=== PATIENT | female | born 1970 | race Two or more races ===

== ENCOUNTER 2018-07-05 16:35 | Inpatient (IN) | payer BC ==
[~2018-07-05] VITALS: Ht 154.9 cm; Wt 63.0 kg
[2018-07-05 16:35] VITALS: BP_SYST 147
--- NOTE | 2018-07-05 16:35 | NUR ---
ASSISTED OUT OF CAR TO WHEELCHAIR, PLACED IN BED #1 AND TRIAGED. REPORT GIVEN TO TERENCE
--- NOTE | 2018-07-05 16:40 | NUR ---
Patient to ER via triage for evaluation s/p falling down hill x 2 today, prior to arrival. Patient brought back to bed 1 via wheelchair and assisted into bed. Patient able to move all extremities, vital signs stable, respirations even and unlabored, skin warm and dry to touch. Awaiting evaluation by ER MD, will continue to observe and assess.
[2018-07-05] MEDS ORDERED: KETOROLAC TROMETHAMINE 30 MG VIAL IVP ONE (16:45)
[2018-07-05] MEDS ORDERED: NACL 0.9% 1,000 ML IV ONE (16:45)
--- NOTE | 2018-07-05 16:45 | NUR ---
PT SPOUSE STATES PT FELL AND ROLLED DOWN A HILL. INJURY TO RIGHT SIDE OF HEAD, FACE, HAND, KNEE, FOOT.
--- NOTE | 2018-07-05 16:50 | NUR ---
ER at bedside examining patient.
--- NOTE | 2018-07-05 16:53 | NUR ---
# 14 FR In and Out catheter with use of sterile technique. Immediate return of 100 ml clear yellow urine noted. Urine sample collected and sent to lab. Pt tolerated procedure well. Patient unable to toilet self at this time.
--- NOTE | 2018-07-05 16:55 | NUR ---
Warm blankets provided. EMT at bedside for wound care.
[2018-07-05 16:58] LABS: BILIRUBIN,URINE NEGATIVE (NEGATIVE); BLOOD, URINE NEGATIVE (NEGATIVE); CLARITY/URINE CLEAR (CLEAR); COLOR,URINE YELLOW (YELLOW); GLUCOSE,URINE NEGATIVE (NEGATIVE); KETONES,URINE NEGATIVE (NEGATIVE); LEUKOCYTE ESTERASE ,URINE NEGATIVE (NEGATIVE); NITRITE, URINE NEGATIVE (NEGATIVE); PH,URINE 5.5 (5.0-8.0); PROTEIN URINE NEGATIVE (NEGATIVE); UROBILINOGEN,URINE 0.2 (0.2-1.0)
[2018-07-05 17:02] LABS: EOSINOPHILS # (AUTO) 0.1 K/uL (0.0-0.4); EOSINOPHILS % (AUTO) 0.9 % (0.0-4.0); MONOCYTES # (AUTO) 0.4 K/uL (0.0-1.0); MONOCYTES % (AUTO) 5.2 % (1.7-9.3)
[2018-07-05 17:07] LABS: BASOPHILS # (AUTO) 0.2 K/uL (0.0-0.2); BASOPHILS % (AUTO) 2.9 % (0.0-2.0); HEMATOCRIT 45.6 % (36-48); HEMOGLOBIN 14.7 g/dL (12.0-16.0); LYMPHOCYTES # (AUTO) 2.5 K/uL (1.0-5.5); LYMPHOCYTES % (AUTO) 31.8 % (20.5-51.5); MEAN CORPUSCULAR HEMOGLOBIN 29 pg (27-31); MEAN CORPUSCULAR HGB CONC 32 % (32-36); MEAN CORPUSCULAR VOLUME 89 fL (79.0-98.0); NEUTROPHILS # (AUTO) 4.6 K/uL (1.8-7.7); NEUTROPHILS % (AUTO) 59.2 % (40.0-70.0); PLATELET COUNT (AUTO) 255 K/uL (130-430); RED BLOOD CELL COUNT(AUTO) 5.14 MIL/uL (4.2-6.2); RED CELL DISTRIBUTION WIDTH 11.7 % (9.0-15.0); WHITE BLOOD COUNT (AUTO) 7.8 K/uL (4.8-10.8)
[2018-07-05 17:09] LABS: POTASSIUM 3.5 mmol/L (3.5-5.1)
[2018-07-05 17:10] LABS: CALCIUM 9.8 mg/dL (8.4-11.0); CREATININE 0.77 mg/dL (0.55-1.30)
--- NOTE | 2018-07-05 17:14 | NUR ---
Off unit for CT via [facility]
[2018-07-05 17:15] LABS: TOTAL BILIRUBIN 0.5 mg/dL (0.0-1.0)
--- NOTE | 2018-07-05 17:20 | NUR ---
Patient back from CT scan in stable condition.
--- NOTE | 2018-07-05 18:00 | NUR ---
Patient resting quietly in no acute distress. Awaiting dispo
[2018-07-05] MEDS ORDERED: DIPH-TET-PERTUS Vaccine 0.5 ML VIAL (ADACEL) I.M. ONE (18:15)
--- NOTE | 2018-07-05 18:25 | NUR ---
Patient will be admitted to care of Dr Hale. Admitted to tele unit. Will go to room 120-B. Belongings list completed. Summary report printed. Report will be given at bedside. Transfer to tele via ACLS protocol. Licensed nurse present. IV present no signs or symptoms of infiltration.
[2018-07-05] MEDS ORDERED: ONDANSETRON HCL 4 MG/2 ML VIAL IVP PRN ×2 (18:30→22:15)
--- NOTE | 2018-07-05 18:45 | NUR ---
ADMISSION NOTE Received patient from ER via reena, received report from TERENCE MCCANN. Patient admitted with diagnosis of CONCUSSION. Patient oriented to hospital routine, call light, toileting and safety-patient verbalized understanding.
--- NOTE | 2018-07-05 18:55 | NUR ---
Medication reconciliation completed with information provided by family. Any prior medication reconciliation on file was reviewed and corrected. Per family, they will bring in a more complete medication list.
[2018-07-05] MEDS ORDERED: AMLO5TAB4 PO (18:59)
[2018-07-05] MEDS ORDERED: CORT25TA PO (18:59)
[2018-07-05] MEDS ORDERED: MELO15TA13 PO (18:59)
[2018-07-05] MEDS ORDERED: [UNRECOGNIZED DRUG - OTHER] PO (18:59)
[2018-07-05 19:00] VITALS: BP_SYST 158
--- NOTE | 2018-07-05 19:30 | NUR ---
OPENING NOTE Received report from Kellen. Patient resting in bed awake, alert, oriented x4. Breathing unlabored and even on room air. No signs of distress, no needs at this time. Fall and safety precautions in place. Bed in lowest position, brake on, alarm on, call light within reach. Family at the bedside. Will continue to monitor.
[2018-07-05 20:00] VITALS: BP_SYST 149
[2018-07-05] MEDS ORDERED: NALT50TA PO (20:43)
[2018-07-05] MEDS ORDERED: PREG75CA PO (20:43)
[2018-07-05] MEDS ORDERED: MELA3TAB PO (20:43)
--- NOTE | 2018-07-05 21:48 | NUR ---
Pt c/o headache. Will page Dr. Hale for orders.
[2018-07-05] MEDS ORDERED: cloNIDine HCL 0.1 MG TABLET PO PRN (22:15)
--- NOTE | 2018-07-05 22:18 | NUR ---
Called remote pharmacy to approve patient's tylenol, they stated "I WILL WORK ON IT".
--- NOTE | 2018-07-05 22:25 | NUR ---
Dr. Hale at the bedside. Orders rec'd.
[2018-07-05] MEDS: ACETAMINOPHEN 325 MG TABLET PO PRN (22:41)
[2018-07-05] MEDS: TEMAZEPAM 15 MG CAPSULE PO PRN (22:42)
[2018-07-05] MEDS ORDERED: HYDROcodone/ACETAMIN 5-325 MG TAB (NORCO/ VICODIN) PO PRN ×2 (22:45)
--- NOTE | 2018-07-05 22:46 | NUR ---
Patient c/o headache. Administered PRN tylenol PO as ordered. Patient requested sleeping pill. Administered PRN restoril PO as ordered. Educated patient on safety and side effects. Encourage call for assist.
[2018-07-05] MEDS ORDERED: DEXTROSE 50% JECT 50 ML DISP.SYRIN IVP PRN (23:00)
--- NOTE | 2018-07-06 00:15 | NUR ---
Patient resting in bed with eyes closed. Breathing unlabored and even on room air. No signs of distress, no needs at this time. Fall and safety precautions in place. Bed in lowest position, brake on, alarm on, call light within reach. at the bedside. Will continue to monitor.
--- NOTE | 2018-07-06 02:41 | NUR ---
Patient c/o pain. Administered PRN norco PO as ordered. Educated patient on side effects and safety. Encouraged call for assist.
[2018-07-06 03:42] VITALS: BP_SYST 126
--- NOTE | 2018-07-06 05:42 | NUR ---
CONSULTATION PAGED/CALLED Reason for Consultation: KNEE SWELLING Person Who was Notified: ANASTASIIA Consulting Physician: DR. MO; ONCALL- DR. CUNNINGHAM Ordering Physician: DR. DOUGLAS
[2018-07-06 06:02] LABS: BASOPHILS % (AUTO) 0.3 % (0.0-2.0); EOSINOPHILS # (AUTO) 0.1 K/uL (0.0-0.4); EOSINOPHILS % (AUTO) 0.8 % (0.0-4.0); HEMATOCRIT 40.8 % (36-48); HEMOGLOBIN 13.3 g/dL (12.0-16.0); LYMPHOCYTES # (AUTO) 1.5 K/uL (1.0-5.5); MEAN CORPUSCULAR HEMOGLOBIN 29 pg (27-31); MEAN CORPUSCULAR HGB CONC 33 % (32-36); MEAN CORPUSCULAR VOLUME 89 fL (79.0-98.0); MONOCYTES # (AUTO) 0.4 K/uL (0.0-1.0); MONOCYTES % (AUTO) 6.8 % (1.7-9.3); NEUTROPHILS # (AUTO) 4.4 K/uL (1.8-7.7); NEUTROPHILS % (AUTO) 68.1 % (40.0-70.0); PLATELET COUNT (AUTO) 231 K/uL (130-430); RED CELL DISTRIBUTION WIDTH 11.9 % (9.0-15.0); WHITE BLOOD COUNT (AUTO) 6.4 K/uL (4.8-10.8)
[2018-07-06] MEDS: INSULIN REGULAR, HUMAN 100 UNITS/ML, 10 ML VIAL (novoLIN R) SUBCUT PRN (06:20)
--- NOTE | 2018-07-06 06:20 | NUR ---
Blood sugar 123. No insulin coverage needed
[2018-07-06 06:26] LABS: CHLORIDE 103 mmol/L (98-107); POTASSIUM 3.5 mmol/L (3.5-5.1); SODIUM SERUM 140 mmol/L (136-145); TOTAL BILIRUBIN 0.6 mg/dL (0.0-1.0)
[2018-07-06 07:23] LABS: ALANINE AMINOTRANSFERASE 30 U/L (12-78); ALBUMIN 3.5 g/dL (3.4-4.8); ANION GAP 9 (5-15); ASPARTATE AMINOTRANSFERASE 21 U/L (10-37); CREATININE 0.84 mg/dL (0.55-1.30); FREE T4 (FREE THYROXINE) 0.8 ng/dl (0.8-1.5); GLUCOSE 104 mg/dL (70-99)
[2018-07-06 07:26] LABS: GFR AFRICAN AMERICAN 93 mL/min (>90)
--- NOTE | 2018-07-06 07:27 | NUR ---
CLOSING NOTE Gave report to Ana. Patient resting in bed awake, alert, oriented x4. Breathing unlabored and even on room air. No signs of distress, no needs at this time. Fall and safety precautions in place. Bed in lowest position, brake on, alarm on, call light within reach. Family at the bedside. Endorsed care to day shift nurse.
[2018-07-06 07:33] LABS: CALCIUM 9.4 mg/dL (8.4-11.0); UREA NITROGEN, BLOOD 16 mg/dL (8-21)
[2018-07-06] MEDS: ACETAMINOPHEN 325 MG TABLET PO PRN (07:54)
[2018-07-06 08:00] VITALS: BP_SYST 109
--- NOTE | 2018-07-06 08:00 | NUR ---
Opening Note Report received from [facility] shift nurse. Patient is currently resting in bed. Soft collar is in place. Patient has abrasions over the right side of her forehead, nose, right knee, and left foot. IV is on the RFA 22g , saline locked. Call light is within reach and bed is in low position. Will continue to monitor.
[2018-07-06] MEDS: amLODIPine BESYLATE 5 MG TABLET PO SCH (09:48)
--- NOTE | 2018-07-06 11:32 | NUR ---
Blood sugar Rechecked blood sugar per patient's request. Current accu check is 135. No insulin coverage needed.
[2018-07-06 11:38] VITALS: BP_SYST 101
[2018-07-06] MEDS ORDERED: ACETAMINOPHEN/CODEINE 300 MG-30 MG TABLET PO PRN (12:00)
[2018-07-06] MEDS ORDERED: AMOXICILLIN/CLAVULANATE POTASSIUM 875 MG TABLET PO ONE (12:15)
[2018-07-06] MEDS ORDERED: LACTOBACILLUS RHAMNOSUS GG 1 CAP CAPSULE PO ONE (12:15)
--- NOTE | 2018-07-06 12:30 | NUR ---
Rounds Patient is resting in bed. Call light is within
--- NOTE | 2018-07-06 12:46 | NUR ---
Neuro consult called: for Dr. Cheung, regarding concussion, ordered by Dr. Hale, spoke with Tatianna.
[2018-07-06] MEDS: MELOXICAM 7.5 MG TABLET PO PRN (13:31)
--- NOTE | 2018-07-06 14:38 | NUR ---
MD ROunds Dr. Hale rounded on the patient. Orders were received.
[2018-07-06 16:11] VITALS: BP_SYST 118
--- NOTE | 2018-07-06 16:37 | NUR ---
RN Notes Right knee immobilizer placed. Patient tolerated well
--- NOTE | 2018-07-06 18:51 | NUR ---
Closing Note Patient is resting in bed. Consult with Dr. Giron and Jonatan are pending. IV is on the RFA 20 saline locked. right knee immobilizer is in place. Call light is within reach and bed is in low position. Will endorse care to the oncoming nurse.
--- NOTE | 2018-07-06 19:22 | NUR ---
OPENING NOTES Received pt and endorsement from morning shift nurse. Pt is awake, alert and lying in bed. Family at bedside. No complains of pain at this time. No sign of acute distress noted. Pt is on saline lock on right forearm G20. Encouraged to use call light when needed. Call light with pt, bed alarm and at its lowest level. Will continue to monitor.
[2018-07-06 20:00] VITALS: BP_SYST 123
[2018-07-06] MEDS: AMOXICILLIN/CLAVULANATE POTASSIUM 875 MG TABLET PO SCH (20:05)
[2018-07-06] MEDS: PREGABALIN 75 MG CAPSULE (LYRICA) PO SCH (20:05)
[2018-07-06] MEDS: LACTOBACILLUS RHAMNOSUS GG 1 CAP CAPSULE PO SCH (20:05)
[2018-07-06] MEDS: TEMAZEPAM 15 MG CAPSULE PO PRN (20:06)
[2018-07-06] MEDS: ACETAMINOPHEN/CODEINE 300 MG-30 MG TABLET PO PRN (20:07)
--- NOTE | 2018-07-06 20:08 | NUR ---
Dr RAMACHANDRAN at bedside now. Addendum: 07/06/18 at 2015 by Maryann Bravo RN Dr. HUBBARD at bedside now. Addendum: 07/06/18 at 2338 by Maryann Bravo RN Pt complained of discomfort about knee immobilizer. Dr. Hubbard removed it and placed it at bedside.
--- NOTE | 2018-07-06 23:24 | NUR ---
RESTING Pt is resting in bed with both eyes closed. With visible chest rise and fall noted. Spouse Ed at bedside. No signs of acute distress or shortness of breath noted. Call light with pt, bed alarm on and at its lowest level. Will continue to monitor.
[2018-07-07 02:00] VITALS: BP_SYST 147
--- NOTE | 2018-07-07 02:00 | NUR ---
RESTING Pt is resting in bed with both eyes closed. With visible chest rise and fall noted. Spouse Ed at bedside. No complains at this time and no signs of acute distress. Safety precautions are in place and call light with pt.
--- NOTE | 2018-07-07 06:40 | NUR ---
CLOSING NOTES Pt is resting in bed with both eyes closed. With visible chest rise and fall noted. Spouse Ed at bedside. No signs of any acute distress noted. All needs attended throughout the shift. Will endorse to day shift nurse.
--- NOTE | 2018-07-07 07:54 | NUR ---
Nutrition Update Arden Scale 18 noted. Pt admitted for concussion Diet: regular diet BMI: 26.3 kg/m2 RD to follow per nutrition care standards.
[2018-07-07 08:00] VITALS: BP_SYST 124
--- NOTE | 2018-07-07 08:00 | NUR ---
Opening Note Report received from [facility] shift nurse. Patient is currently sleeping in bed. IV is on the RFA 20 saline locked. Right knee immobilizer is off per patient's request. No signs of acute distress noted at the moment. Call light is within reach and bed is in low position. Will continue to monitor.
[2018-07-07] MEDS: AMOXICILLIN/CLAVULANATE POTASSIUM 875 MG TABLET PO SCH ×2 (08:45→20:56)
[2018-07-07] MEDS: LACTOBACILLUS RHAMNOSUS GG 1 CAP CAPSULE PO SCH ×2 (08:45→20:55)
[2018-07-07] MEDS: amLODIPine BESYLATE 5 MG TABLET PO SCH (08:46)
[2018-07-07] MEDS: MELOXICAM 7.5 MG TABLET PO PRN (08:46)
--- NOTE | 2018-07-07 09:00 | NUR ---
Pain med Medicated the patient for pain following the indicted pain scale. Will reassess.
--- NOTE | 2018-07-07 10:20 | NUR ---
Rounds patient is resting in bed. Family is at the bedside.
--- NOTE | 2018-07-07 12:35 | NUR ---
Rounds Patient is resting in bed. No signs of acute distress noted at the moment.
[2018-07-07 12:59] VITALS: BP_SYST 132
--- NOTE | 2018-07-07 14:39 | NUR ---
Rounds Patient is resting in bed. Call light is within reach.
[2018-07-07] MEDS: ACETAMINOPHEN/CODEINE 300 MG-30 MG TABLET PO PRN ×2 (16:10→20:56)
--- NOTE | 2018-07-07 16:29 | NUR ---
Md Rounds Dr. Aguayo is covering for Dr. Cheung. assessed the patient at the bedside and ordered an MRI of the brain for tomorrow.
[2018-07-07 16:37] VITALS: BP_SYST 123
--- NOTE | 2018-07-07 16:55 | NUR ---
Pain med Medicated the patient for pain using the indicated pain scale. Will reassess.
--- NOTE | 2018-07-07 18:42 | NUR ---
Closing Note Patient has been stable throughout the shift. MRI of the brain and right knee are pending for tomorrow. IV is on the RFA 20g sl. Call light is within reach and bed is in low position. Will endorse care to the oncoming nurse.
--- NOTE | 2018-07-07 19:05 | NUR ---
OPENING NOTES Late entry due to patient care. Bedside report received from day shift nurse. Patient received AOx4, lying in bed, watching TV, denies any pain, no s/s of acute distress noted. Breathing even and unlabored. HOB raised. No active bleeding noted. No signs of hypoglycemia, skin warm and dry to touch. Call light with patient, instructed to call for any assistance, patient verbalized understanding. Bed alarm is off per patient's refusal. Patient's , Ed, is present at bedside. Bed is locked and at lowest position. Will continue to monitor.
[2018-07-07 20:00] VITALS: BP_SYST 131
[2018-07-07] MEDS: PREGABALIN 75 MG CAPSULE (LYRICA) PO SCH (20:55)
[2018-07-07] MEDS: INSULIN REGULAR, HUMAN 100 UNITS/ML, 10 ML VIAL (novoLIN R) SUBCUT PRN (20:55)
--- NOTE | 2018-07-07 20:57 | NUR ---
REFUSED INSULIN Patient's blood sugar at 187 but refused insulin at this time. Patient stated that she just had a pizza a few minutes ago.
--- NOTE | 2018-07-07 22:00 | NUR ---
SLEEPING PILL Patient requested for sleeping at this time. Restoril to be administered per PRN orders.
[2018-07-07] MEDS: TEMAZEPAM 15 MG CAPSULE PO PRN (22:09)
--- NOTE | 2018-07-08 | NUR ---
ROUNDS Patient in bed sleeping at this time. Patient's present at bedside. No s/s of acute distress noted. Breathing even and unlabored. Call light with patient. Will continue to monitor.
[2018-07-08 01:40] VITALS: BP_SYST 103
--- NOTE | 2018-07-08 02:00 | NUR ---
ROUNDS Patient sleeping at this time. Patient's still present at bedside. No signs of discomfort noted. Chest rise and fall even bilaterally. Call light with patient. Will continue to monitor.
--- NOTE | 2018-07-08 04:00 | NUR ---
ROUNDS Patient sleeping comfortably at this time. No s/s of acute distress noted. Breathing even and unlabored. Call light with patient. Will continue to monitor.
--- NOTE | 2018-07-08 06:00 | NUR ---
ROUNDS Patient in bed at this time, resting. No signs of discomfort noted. Chest rise and fall even bilaterally. Call light with patient. Bed alarm on. Will continue to monitor.
[2018-07-08] MEDS: INSULIN REGULAR, HUMAN 100 UNITS/ML, 10 ML VIAL (novoLIN R) SUBCUT PRN (06:17)
[2018-07-08] MEDS: ACETAMINOPHEN/CODEINE 300 MG-30 MG TABLET PO PRN ×2 (06:18→16:23)
--- NOTE | 2018-07-08 06:43 | NUR ---
CLOSING NOTES Patient in bed awake, alert, going over her phone, no s/s of acute distress noted. Breathing is even and unlabored. Patient's present at bedside, sleeping. IV site is patent, no signs of infiltration or infection noted. Skin warm and dry to touch, no signs of hypoglycemia noted. All of patient's needs met throughout shift. Fall and safety precautions maintained throughout shift. Will continue to monitor until patient care is endorsed to oncoming day shift nurse.
[2018-07-08 07:30] VITALS: BP_SYST 98
--- NOTE | 2018-07-08 08:00 | NUR ---
AM ASSESSMENT RECEIVED PT IN BED .A/OX4,DENIES ANY PAIN AT THIS TIME. C/O OF MILD DIZZINESS. VITALS STABLE. RES EVEN AND UNLABORED. NOT IN ACUTE DISTRESS. POC DISCUSSED WITH PT AND . VERBALIZED UNDERSTANDING. FALL AND SAFETY PRECAUTIONS MAINTAINED. NEEDS ATTENDED. INSTRUCTED PT RUTHIE FOR ASSISTANCE . PT VERBALIZED UNDERSTANDING. WILL CONTINUE TO MONITOR
[2018-07-08] MEDS: amLODIPine BESYLATE 5 MG TABLET PO SCH (09:00)
[2018-07-08] MEDS ORDERED: SILVER 44.4 ML GEL.ER.ML. TP SCH (09:00)
[2018-07-08] MEDS: AMOXICILLIN/CLAVULANATE POTASSIUM 875 MG TABLET PO SCH (09:24)
[2018-07-08] MEDS: LACTOBACILLUS RHAMNOSUS GG 1 CAP CAPSULE PO SCH (09:25)
--- NOTE | 2018-07-08 09:30 | NUR ---
MEDS DUE MEDS GIVEN ORDERED. PT STABLE
--- NOTE | 2018-07-08 11:00 | NUR ---
WOUND EVALUATION: Late note for 1100 secondary to patient care. Wound Consult received from Dr. Hale. Thank you, Dr. Hale, for the consult. Patient received in a [place] Bed with an IsoFlex DARY mattress, awake, alert, oriented. Patient is able to turn in bed independently. Arden Score is an 18. Past Medical History: Patient reported falling down a hill and hitting her head, and following one additional time while getting into her car. No other medical history available. Recent Labs: WBC 6.4, RBC 4.60, hemoglobin 13.3, hematocrit 40.8, GFR 77, glucose 104, POC glucose 179. Intrinsic factors that delay wound healing: Hyperglycemia. Extrinsic factors that delay wound healing: Decreased mobility. Microbiology: No microbiology reports. Wound Assessment: 1. Right lateral forehead: Wound from a fall, present on admission. Wound bed has 100% black scab. No odor, no drainage. Periwound intact. Wound measures 2.8 cm x 2.4 cm. Recommend: Cleanse wound with normal saline. Apply sure prep to periwound. Apply SilvaSorb gel, then hydrogel to wound bed. Cover with foam dressing, then transparent dressing. Perform wound care daily, and as needed for dressing soiling or dislodgment. 2. Right lateral periorbital area: Abrasion from a fall, present on admission. Wound bed has 100% dry red tissue. No odor, no drainage. Periwound intact. Recommend: No dressing needed. Continue to monitor site every shift. 3. Anterior bridge of nose: Wound from a fall, present on admission. Wound bed has 100% black scab. No odor, no drainage. Periwound intact. Wound measures 2.2 cm x 0.8 cm. Recommend: Cleanse wound with normal saline. Pat dry. Apply sure prep to periwound. Apply SilvaSorb gel, then hydrogel to wound bed. Cover with foam dressing, then transparent dressing. Perform wound care daily, and as needed for dressing soiling or dislodgment. 4. Right medial knee: Wound from a fall, present on admission. Wound bed has 80% yellow tissue, 10% red tissue, 10% dark discolored tissue. No odor, scant sanguineous drainage. Periwound and surrounding tissue has ecchymosis. Wound measures 6.0 cm x 5.0 cm. Recommend: Cleanse wound with normal saline. Pat dry. Apply sure prep to periwound. Apply SilvaSorb gel, then hydrogel to wound bed. Cover with oil emulsion dressing. Cover with foam dressing. Perform wound care daily, and as needed for dressing soiling or dislodgment. Also recommend: Encourage patient to self-reposition every 2 hours with pillow support, and off-load pressure areas with pillows for pressure re-distribution. Perform skin care and monitor skin integrity Q shift. Addendum: 07/08/18 at 1845 by Austin Alonzo RN Addendum: 5. Right medial first metatarsal head: Open abrasion, with 80% pink tissue, 20% yellow tissue, present on admission. Measures 1.0 cm x 2.0 cm. Assessment provided by SIOBHAN Keane. Recommend: Cleanse wound with normal saline. Apply sure prep to periwound. Apply SilvaSorb gel, then hydrogel to wound bed. Cover with foam dressing. Perform wound care daily, and as needed for dressing soiling or dislodgment. For home, recommend: Cleanse wounds with normal saline. Apply sure prep to periwounds. Apply SilvaSorb gel to wound beds. Cover with foam dressings. Perform wound care daily, and as needed for dressing soiling or dislodgment. Patient may use over the counter triple antibiotic ointment if she prefers.
--- NOTE | 2018-07-08 11:30 | NUR ---
wound care wound care done with wound care nurse . patient and pt 's educated on wound care .verbalized understanding
[2018-07-08 12:00] VITALS: BP_SYST 121
--- NOTE | 2018-07-08 12:00 | NUR ---
BLOOD SUGAR BLOOD SUGAR 102MG/DL. PT EATING LUNCH. DIZZINESS BETTER PER PT. VITALS STABLE. NOT IN ACUTE DISTRESS. WILL CONITNUE TO MONITOR
--- NOTE | 2018-07-08 15:00 | NUR ---
rounds pt came from mri. not in acute distress. resting comfortably
--- NOTE | 2018-07-08 16:23 | NUR ---
pain pt c/o of headache01/20 .medicated with pain med as ordered.will continue to monitor. family at bed side
[2018-07-08 16:24] VITALS: BP_SYST 119
--- NOTE | 2018-07-08 18:30 | NUR ---
md visit dr angulo here. new order received for discharge
[2018-07-08 19:12] VITALS: BP_SYST 103
--- NOTE | 2018-07-08 19:50 | NUR ---
D/C Patient Patient given medication reconciliation form and D/C instructions. Exit Care provided. Patient verbalized understanding. MD discussed with patient the results and treatment provided. Ambulatory with steady gait for discharge to home. Patient in stable condition, ID band removed. no iv noted . no active bleeding. wound care and discharge instructions given verbalized understanding. Patient educated on pain management. All belongings sent with patient. Addendum: 07/08/18 at 2007 by Diya Menjivar RN pt received all prescriptions yesterday given by dr angulo
== END 2018-07-08 19:50 | disposition home or self-care (01) | DRG 914 ==
LOC: SED 16:35 → STU 18:21 → SMU 07-07 15:43
PROVIDERS: ADMIT Internal Medicine; ATTEND Internal Medicine
PROC: 2W3QXYZ Immobilization of Right Lower Leg using Other Device (ICD-10-PCS; principal; 2018-07-05)
DX: S09.90XA Unspecified injury of head, initial encounter (principal); I10 Essential (primary) hypertension; M79.7 Fibromyalgia; M06.9 Rheumatoid arthritis, unspecified; E11.9 Type 2 diabetes mellitus without complications; T14.8XXA Other injury of unspecified body region, initial encounter; G89.4 Chronic pain syndrome; S00.83XA Contusion of other part of head, initial encounter; M25.561 Pain in right knee; W17.81XA Fall down embankment (hill), initial encounter; Z83.3 Family history of diabetes mellitus; Z82.49 Family history of ischemic heart disease and other diseases of the circulatory system; Y93.89 Activity, other specified; Y92.89 Other specified places as the place of occurrence of the external cause; Y99.8 Other external cause status
CPT/HCPCS: 36415; 70450-TC; 70551; 72125-TC; 73564; 73721; 80053; 81003; 82962; 83605; 84439; 84443-TC; 84484; 84550-TC; 85025; 90656; 90715; 93005; 93880; 96361; 96374; 99285; A6261; J1815; J1885; J2405; J7030

== ENCOUNTER 2018-08-20 11:43 | Outpatient (CLI) | payer BC ==
[~2018-08-20 11:43] MED LIST: AMLO5TAB4 PO; CORT25TA PO; MELA3TAB PO; MELO15TA13 PO; NALT50TA PO; PREG75CA PO; [UNRECOGNIZED DRUG - OTHER] PO
== END 2018-08-20 18:29 | disposition home or self-care (01) ==
LOC: SMI 11:43
PROVIDERS: ATTEND Orthopaedic Surgery
DX: M25.511 Pain in right shoulder (principal)
CPT/HCPCS: 73221

== ENCOUNTER 2018-09-09 01:51 | Emergency (ER) | payer BC ==
[~2018-09-09] VITALS: Ht 154.9 cm; Wt 71.2 kg
[2018-09-09 01:55] VITALS: BP_SYST 115
[2018-09-09] MEDS ORDERED: ASPIRIN 81 MG TAB.CHEW PO ONE (02:30)
[2018-09-09] MEDS ORDERED: LevALBUTEROL HCL 1.25 MG/0.5 ML *CONC.* VIAL.NEB (XOPENEX CONC.) INH ONE (02:30)
[2018-09-09 02:44] LABS: BASOPHILS # (AUTO) 0.2 K/uL (0.0-0.2); BASOPHILS % (AUTO) 2.8 % (0.0-2.0); EOSINOPHILS # (AUTO) 0.1 K/uL (0.0-0.4); EOSINOPHILS % (AUTO) 1.7 % (0.0-4.0); HEMATOCRIT 39.3 % (36-48); LYMPHOCYTES # (AUTO) 2.2 K/uL (1.0-5.5); MEAN CORPUSCULAR HEMOGLOBIN 28 pg (27-31); MEAN CORPUSCULAR HGB CONC 33 % (32-36); MEAN CORPUSCULAR VOLUME 86 fL (79.0-98.0); MONOCYTES # (AUTO) 0.3 K/uL (0.0-1.0); NEUTROPHILS # (AUTO) 3.5 K/uL (1.8-7.7); NEUTROPHILS % (AUTO) 55.5 % (40.0-70.0); PLATELET COUNT (AUTO) 256 K/uL (130-430); RED BLOOD CELL COUNT(AUTO) 4.58 MIL/uL (4.2-6.2); RED CELL DISTRIBUTION WIDTH 12.5 % (9.0-15.0); WHITE BLOOD COUNT (AUTO) 6.3 K/uL (4.8-10.8)
[2018-09-09 02:49] LABS: BILIRUBIN,URINE NEGATIVE (NEGATIVE); BLOOD, URINE NEGATIVE (NEGATIVE); CLARITY/URINE CLEAR (CLEAR); COLOR,URINE YELLOW (YELLOW); GLUCOSE,URINE NEGATIVE (NEGATIVE); KETONES,URINE NEGATIVE (NEGATIVE); LEUKOCYTE ESTERASE ,URINE NEGATIVE (NEGATIVE); NITRITE, URINE NEGATIVE (NEGATIVE); PH,URINE 7.5 (5.0-8.0); PROTEIN URINE NEGATIVE (NEGATIVE); UROBILINOGEN,URINE 0.2 (0.2-1.0)
[2018-09-09 02:58] LABS: CALCIUM 8.8 mg/dL (8.4-11.0); CREATININE 0.68 mg/dL (0.55-1.30); POTASSIUM 3.4 mmol/L (3.5-5.1)
[2018-09-09 03:03] LABS: ALBUMIN 3.3 g/dL (3.4-4.8); TOTAL BILIRUBIN 0.3 mg/dL (0.0-1.0)
[2018-09-09 03:05] LABS: PROTHROMBIN TIME 10.1 SECS (9.5-12.5)
[2018-09-09] MEDS ORDERED: IOHEXOL 350 mgI/mL, 150 ML INFUS..BTL IV ONE (04:08)
[2018-09-09 05:50] VITALS: BP_SYST 118
== END 2018-09-09 05:50 | disposition home or self-care (01) ==
LOC: SED 01:51
DX: R07.89 Other chest pain (principal); R06.02 Shortness of breath; M06.9 Rheumatoid arthritis, unspecified; M79.7 Fibromyalgia; I10 Essential (primary) hypertension; Z79.899 Other long term (current) drug therapy
CPT/HCPCS: 36415; 71045; 71275; 80053; 81003; 83880; 84484; 85025; 85379; 85610; 85730; 93005; 94640; 99284; J7612; Q9967